=== PATIENT | female | born 1940 | race Caucasian/White ===

== ENCOUNTER 2016-12-15 23:05 | Inpatient (IN) ==
[2016-12-15 23:44] LABS: Basophils # 0.1 K/mcL (0.0-0.2); Basophils % 0.3 %; Hematocrit 43.3 % (35.3-44.9); Hemoglobin 13.9 g/dL (11.5-15.4); Immature Granulocytes % 0.3 % (0-4); Lymphocytes # 5.8 K/mcL (0.6-4.6); Lymphocytes % 38.3 %; Mean Corpuscular HGB Conc 32.1 g/dL (31.6-35.5); Mean Corpuscular Hemoglobin 28.5 pg (28.0-33.3); Mean Corpuscular Volume 88.9 fL (83.0-100.0); Monocytes # 1.1 K/mcL (0.0-1.3); Neutrophils # 8.2 K/mcL (1.6-8.9); Platelet Count 300 K/mcL (140-400); Red Blood Count 4.87 M/mcL (3.82-4.97); Red Cell Distribution Width 14.2 % (11.5-14.5); Segmented Neutrophils % 54.1 %
[2016-12-15 23:55] LABS: INR 1.3; Prothrombin Time 13.6 Seconds (9.4-12.1)
[2016-12-15 23:56] LABS: Calcium 9.8 mg/dL (8.6-10.8); Potassium 4.1 mEq/L (3.5-4.5)
[2016-12-15 23:57] LABS: Activated Partial Thrombo Time 32.2 Seconds (26.0-36.0)
--- NOTE | 2016-12-16 00:19 | Emergency Department Note ---
Disposition Clinical Impression: Symptomatic bradycardia Disposition: Admitted As Inpatient Condition: Fair Referrals: Trenton Aguero MD [Primary Care Provider] - Forms: ED Satisfaction Letter Time of Disposition: 01:40 Arrhythmia/Palpitations HPI - General Chief Complaint: ED Arrhythmia/Palpitations Stated Complaint: low heart rate Time Seen by Provider: 12/15/16 23:41 Source: patient Mode of arrival: ambulatory Limitations: no limitations Nursing Notes Reviewed: Yes Vital Signs Reviewed: Yes - History of Present Illness HPI Narrative: Nontoxic-appearing 76-year-old female presents for evaluation of a "low heart rate". The patient was admitted to this facility on 11/20/16 for atrial fibrillation with rapid ventricular rate. During her hospitalization, she was started on Toprol XL 50 mg, as well as Cardizem 360 mg. She states that ever since, she has had intermittent episodes of bradycardia into the high 30s and low 40s. She states that earlier today, she noticed that she was slightly lightheaded, short of breath with exertion, as well as began to have some substernal chest "pressure" however her lightheadedness had ceased by her [place] [facility] [place]. She has seen her pastry decorator, Remigio rivera Regarding this matter. She states that they are discussing the possibility of a pacemaker placement. Pt Subjective Complaint: irregular heart beat Onset (ago): day(s) Duration: intermittent Arrhythmia History: atrial fibrillation, on anti-coagulants Associated symptoms: Reports: chest pain (Substernal chest "pressure"), shortness of breath (Intermittent), diaphoresis (Intermittent) Treatments prior to arrival: beta-cori, calcium channel cori - Related Data Home Medications Medication Instructions Recorded Confirmed Aspirin [Lo-Dose Aspirin EC] 81 mg PO DAILY 11/20/16 11/20/16 Citalopram Hydrobromide 10 mg PO DAILY 11/20/16 11/20/16 [Citalopram HBr] Ergocalciferol (VITAMIN D2) 50,000 unit PO QWEEK 11/20/16 11/20/16 [Vitamin D2] Latanoprost [Xalatan] 1 drop OP QPM 11/20/16 11/20/16 Metformin HCl [Metformin HCl ER] 500 mg PO DAILY 11/20/16 11/20/16 Spironolactone [Aldactone] 25 mg PO DAILY 11/20/16 11/20/16 Previous Rx's Medication Instructions Recorded Rivaroxaban [Xarelto] 15 mg PO DAILY #30 tablet 11/21/16 Atorvastatin [Lipitor] 40 mg PO HS #30 tab 11/25/16 Diltiazem CD (24hr) [Cardizem CD] 360 mg PO DAILY 30 Days 11/25/16 DiphenhydraMINE [Benadryl] 25 mg PO Q8HR #14 capsule 11/25/16 Losartan/HCTZ [Hyzaar 50-12.5 1 each PO DAILY #30 tablet 11/25/16 Tablet] Metoprolol XL (24 HR) Succ [Toprol 50 mg PO BID 30 Days 11/25/16 Xl] Omeprazole [PriLOSEC] 40 mg PO DAILY@0630 #30 11/25/16 predniSONE [PredniSONE] 10 mg PO DAILY #10 tablet 11/25/16 Allergies Allergy/AdvReac Type Severity Reaction Status Date / Time bee venom protein (honey bee) Allergy Difficulty Verified 12/15/16 23:17 Breathing naproxen Allergy Hives Verified 12/15/16 23:17 Penicillins Allergy Hives Verified 12/15/16 23:17 All systems ED: reviewed and negative except as stated. Constitutional: Denies: fever, chills, weakness, weight change Eyes: Denies: eye pain, eye discharge, vision change ENT ED: Denies: ear pain, throat pain, dental pain, hearing loss, epistaxis, congestion, dysphagia Cardiovascular: Reports: as per HPI, chest pain, other (Low heart rate). Denies : palpitations, dyspnea on exertion, edema, syncope Respiratory: Denies: cough, dyspnea, wheezes, hemoptysis, stridor Gastrointestinal: Denies: abdominal pain, nausea, vomiting, diarrhea, constipation, hematemesis, melena, hematochezia Genitourinary: Denies: dysuria, frequency, hematuria, discharge Musculoskeletal: Denies: back pain, neck pain, arthralgia, myalgia Integumentary: Denies: rash, abrasion, lesions Neurological: Reports: as per HPI, other (Lightheadedness). Denies: headache, weakness, numbness, paresthesias, confusion, abnormal gait, vertigo Psychiatric: Denies: anxiety, depression, suicidal thoughts, homicidal thoughts , auditory hallucinations, visual hallucinations Endocrine: Denies: fatigue Hematological/Lymphatic: Denies: easy bleeding, easy bruising Allergic/Immunologic: Denies: facial swelling, urticaria Past Medical History - Past Medical History Attestation: Yes The following information was validated with the patient. Source: patient, nursing notes reviewed Medical history: Reports: atrial fibrillation, diabetes, GERD, glaucoma, hyperlipidemia, hypertension Surgical history: Reports: hysterectomy, knee replacement, orthopedic, other Psychiatric history: Reports: anxiety - Social History Smoking Status: Never smoker Smokeless Tobacco Status: No Alcohol use: Reports: none Drug use: Reports: none Physical Exam - General General appearance: alert, in no apparent distress - Head Head exam: atraumatic, normocephalic, normal inspection - Eye Eye exam: Present: normal appearance, PERRL, EOMI. Absent: nystagmus - ENT ENT exam: mucous membranes moist - Neck Neck exam: Present: normal inspection, full ROM, trachea midline - Chest Chest inspection: Present: normal inspection, symmetric chest wall rise - Respiratory Respiratory exam: Present: normal lung sounds bilaterally. Absent: respiratory distress, wheezes, stridor, accessory muscle use, prolonged expiratory phase - Cardiovascular Cardiovascular exam: Present: normal rhythm, bradycardia, normal heart sounds - Abdominal Exam Abdominal exam: Present: soft, Non-Tender, normal bowel sounds - Extremities Exam Extremities exam: Present: normal inspection, full ROM. Absent: tenderness, pedal edema - Neurological Exam Neurological exam: Present: alert, oriented X3 - Psychiatric Psychiatric exam: Present: normal affect, normal mood - Skin Skin exam: Present: warm, dry, intact, normal color Course Course Narrative: I discussed this patient's case with Dr. Castillo, who recommends admission to the hospital service for further evaluation of the patient's symptomatic bradycardia. 0135: I spoke with Dr. Gatica, of the hospitalist service who has accepted the patient for admission for further evaluation of her symptomatically bradycardia. Vital Signs Temperature 98.3 F 12/15/16 23:12 Pulse Rate 42 12/15/16 23:12 Respiratory Rate 16 12/15/16 23:12 Blood Pressure 156/78 12/15/16 23:12 O2 Sat by Pulse Oximetry 97 12/15/16 23:12 Temperature 98.3 F 12/15/16 23:12 Pulse Rate 57 12/16/16 01:19 Respiratory Rate 18 12/16/16 01:19 Blood Pressure 137/65 09/25/17 01:19 O2 Sat by Pulse Oximetry 96 12/16/16 01:19 Oxygen Delivery Oxygen Delivery Room Air Arrhythmia/Palpitations - Medical Records Medical records reviewed: Yes I reviewed the patient's medical records. - Lab Data Lab results reviewed: Yes I reviewed the patient's lab results. Lab results narrative: Laboratory Last Values WBC 15.1 K/mcL (4.3-11.1) H 12/15/16 23:33 RBC 4.87 M/mcL (3.82-4.97) 12/15/16 23:33 Hgb 13.9 g/dL (11.5-15.4) 12/15/16 23:33 Hct 43.3 % (35.3-44.9) 12/15/16 23: MCV 88.9 fL (83.0-100.0) 12/15/16 23:33 MCH 28.5 pg (28.0-33.3) 12/15/16 23: MCHC 32.1 g/dL (31.6-35.5) 12/15/16 23:33 RDW 14.2 % (11.5-14.5) 12/15/16 23:33 Plt Count 300 K/mcL (140-400) 12/15/16 23:33 MPV 12.0 fL (9.4-12.4) 12/15/16 23:33 Immature Gran % 0.3 % (0-4) 12/15/16 23:33 Seg Neutrophils % 54.1 % 12/15/16 23:33 Lymphocytes % 38.3 % 12/15/16 23:33 Monocytes % 7.0 % 12/15/16 23:33 Eosinophils % 0.0 % 12/15/16 23:33 Basophils % 0.3 % 12/15/16 23:33 Neutrophils # 8.2 K/mcL (1.6-8.9) 12/15/16 23:33 Lymphocytes # 5.8 K/mcL (0.6-4.6) H 12/15/16 23:33 Monocytes # 1.1 K/mcL (0.0-1.3) 12/15/16 23: Eosinophils # 0.0 K/mcL (0.0-0.6) 12/15/16 23:33 Basophils # 0.1 K/mcL (0.0-0.2) 12/15/16 23:33 PT 13.6 Seconds (9.4-12.1) H 12/15/16 23:33 INR 1.3 12/15/16 23:33 APTT 32.2 Seconds (26.0-36.0) 12/15/16 23:33 Sodium 141 mEq/L (136-145) 12/15/16 23:33 Potassium 4.1 mEq/L (3.5-4.5) 12/15/16 23:33 Chloride 106 mEq/L (98-109) 12/15/16 23:33 Carbon Dioxide 24 mEq/L (19-29) 12/15/16 23:33 BUN 28 mg/dL (7-20) H 12/15/16 23:33 Creatinine 1.20 mg/dL (0.57-1.11) H 12/15/16 23:33 Est GFR ( Amer) 53 (> 60) L 12/15/16 23:33 Est GFR (Non-Af Amer) 44 (> 60) L 12/15/16 23:33 BUN/Creatinine Ratio 23 (6-26) 12/15/16 23:33 Glucose 111 mg/dL (70-99) H 12/15/16 23:33 Calculated Osmolality 298 (280-300) 12/15/16 23:33 Calcium 9.8 mg/dL (8.6-10.8) 12/15/16 23:33 Troponin I 0.01 ng/mL (0-0.03) 12/15/16 23:33 Result diagrams: 12/15/16 23:33 12/15/16 23:33 Lab Results 12/15/16 12/15/16 12/15/16 Range/Units 23:33 23:33 23:33 WBC 15.1 H (4.3-11.1) K/mcL RBC 4.87 (3.82-4.97) M/mcL Hgb 13.9 (11.5-15.4) g/dL Hct 43.3 (35.3-44.9) % MCV 88.9 (83.0-100.0) fL MCH 28.5 (28.0-33.3) pg MCHC 32.1 (31.6-35.5) g/dL RDW 14.2 (11.5-14.5) % Plt Count 300 (140-400) K/mcL MPV 12.0 (9.4-12.4) fL Immature Gran % 0.3 (0-4) % Seg Neutrophils % 54.1 % Lymphocytes % 38.3 % Monocytes % 7.0 % Eosinophils % 0.0 % Basophils % 0.3 % Neutrophils # 8.2 (1.6-8.9) K/mcL Lymphocytes # 5.8 H (0.6-4.6) K/mcL Monocytes # 1.1 (0.0-1.3) K/mcL Eosinophils # 0.0 (0.0-0.6) K/mcL Basophils # 0.1 (0.0-0.2) K/mcL PT (9.4-12.1) Seconds INR APTT (26.0-36.0) Seconds Sodium 141 (136-145) mEq/L Potassium 4.1 (3.5-4.5) mEq/L Chloride 106 (98-109) mEq/L Carbon Dioxide 24 (19-29) mEq/L BUN 28 H (7-20) mg/dL Creatinine 1.20 H (0.57-1.11) mg/dL Est GFR ( Amer) 53 L (> 60) Est GFR (Non-Af Amer) 44 L (> 60) BUN/Creatinine Ratio 23 (6-26) Glucose 111 H (70-99) mg/dL Calculated Osmolality 298 (280-300) Calcium 9.8 (8.6-10.8) mg/dL Troponin I 0.01 (0-0.03) ng/mL Urine Color (Yellow) Urine Clarity (Clear) Urine pH (5.0-8.0) pH Units Ur Specific Accord (1.010-1.025) Urine Protein (Neg-Trace) mg/dL Urine Glucose (UA) (Normal) mg/dL Urine Ketones (Negative) mg/dL Urine Blood (Negative) Urine Nitrite (Negative) Urine Bilirubin (Negative) Urine Urobilinogen (Normal) mg/dL Ur Leukocyte Esterase (Negative) Urine Microscopic RBC (0-3) per hpf Urine Microscopic WBC (0-3) per hpf Ur Squamous Epith Cells (None-Few) per lpf Urine Bacteria (None-Few) per hpf Hyaline Casts (None-Few) per lpf Ur Culture Indicated? (NO) 12/15/16 12/16/16 Range/Units 23:33 01:08 WBC (4.3-11.1) K/mcL RBC (3.82-4.97) M/mcL Hgb (11.5-15.4) g/dL Hct (35.3-44.9) % MCV (83.0-100.0) fL MCH (28.0-33.3) pg MCHC (31.6-35.5) g/dL RDW (11.5-14.5) % Plt Count (140-400) K/mcL MPV (9.4-12.4) fL Immature Gran % (0-4) % Seg Neutrophils % % Lymphocytes % % Monocytes % % Eosinophils % % Basophils % % Neutrophils # (1.6-8.9) K/mcL Lymphocytes # (0.6-4.6) K/mcL Monocytes # (0.0-1.3) K/mcL Eosinophils # (0.0-0.6) K/mcL Basophils # (0.0-0.2) K/mcL PT 13.6 H (9.4-12.1) Seconds INR 1.3 APTT 32.2 (26.0-36.0) Seconds Sodium (136-145) mEq/L Potassium (3.5-4.5) mEq/L Chloride (98-109) mEq/L Carbon Dioxide (19-29) mEq/L BUN (7-20) mg/dL Creatinine (0.57-1.11) mg/dL Est GFR ( Amer) (> 60) Est GFR (Non-Af Amer) (> 60) BUN/Creatinine Ratio (6-26) Glucose (70-99) mg/dL Calculated Osmolality (280-300) Calcium (8.6-10.8) mg/dL Troponin I (0-0.03) ng/mL Urine Color Yellow (Yellow) Urine Clarity Clear (Clear) Urine pH 6.0 (5.0-8.0) pH Units Ur Specific Accord 1.015 (1.010-1.025) Urine Protein Negative (Neg-Trace) mg/dL Urine Glucose (UA) Normal (Normal) mg/dL Urine Ketones Negative (Negative) mg/dL Urine Blood Trace H (Negative) Urine Nitrite Negative (Negative) Urine Bilirubin Negative (Negative) Urine Urobilinogen Normal (Normal) mg/dL Ur Leukocyte Esterase Moderate H (Negative) Urine Microscopic RBC 0-3 (0-3) per hpf Urine Microscopic WBC 15-30 H (0-3) per hpf Ur Squamous Epith Cells Moderate H (None-Few) per lpf Urine Bacteria Moderate H (None-Few) per hpf Hyaline Casts None Seen (None-Few) per lpf Ur Culture Indicated? YES A (NO) - Radiology Data Radiology results reviewed: Yes I reviewed the patient's radiology results. Chest X-Ray 12/15/16 23:08 IMPRESSION: No focal airspace consolidation. D/ / Giselle Pelayo MD / Giselle Pelayo MD Interpreting Provider: Giselle Pelayo MD - EKG Data EKG attestation: Yes I reviewed and interpreted this EKG. EKG results narrative: EKG reviewed by Dr. Castillo as well. EKG shows a sinus bradycardia at a rate of 38 bpm. QRS duration 119, QT/QTc interval 479/399. No ectopy noted no STEMI. Moderate T-wave abnormality. Attestation Statement - Attestation Attestation: For this encounter, I have reviewed the TEXTILE SCREEN PRINTER or PA documentation, treatment plan, and medical decision making; and I have had face to face time with this patient. 76 year old female with symptomatic bradycardia we will treat with atropine and placed on pacer pads for precautions. ARF and order a UA for further evaluation. WE will admit to [facility]. after atropine therapy patinent HR is now 53.
[2016-12-16] MEDS ORDERED: *HR* Atropine Sulfate 1 MG/10 ML SYRINGE IVP STA ×2 (00:26→01:14)
[2016-12-16] MEDS ORDERED: Aspirin 81 MG TAB.CHEW PO ONE (00:45)
[2016-12-16 01:18] LABS: Bilirubin,Urine Negative (Negative); Blood,Urine Trace (Negative); Clarity,Urine Clear (Clear); Color,Urine Yellow (Yellow); Glucose,Urine (UA) Normal (Normal); Ketones,Urine Negative (Negative); Leukocyte Esterase,Urine Moderate (Negative); Nitrite,Urine Negative (Negative); Protein,Urine Negative (Neg-Trace); Specific Gravity,Urine 1.015 (1.010-1.025); Urobilinogen,Urine Normal (Normal)
[2016-12-16 01:20] LABS: Bacteria,Urine Moderate per hpf (None-Few); Hyaline Casts,Urine None Seen per lpf (None-Few); RBC,Urine 0-3 per hpf (0-3); Squamous Epithelial Cell,Urine Moderate per lpf (None-Few); WBC,Urine 15-30 per hpf (0-3)
[2016-12-16] MEDS ORDERED: 0.9 % Sodium Chloride 1,000 ML IVC ONE (01:26)
[2016-12-16] MEDS ORDERED: Ondansetron 4 MG/2 ML VIAL IVP PRN (02:55)
[2016-12-16] MEDS ORDERED: Naloxone 0.4 MG/ML INJ IVP PRN (02:55)
[2016-12-16] MEDS ORDERED: D5% in Water 1,000 ML IVC PRN (02:59)
[2016-12-16] MEDS ORDERED: *HR* Dextrose 50 % in Water (Syg) 50 ML SYRINGE IVP PRN (02:59)
[2016-12-16] MEDS ORDERED: Dextrose Gel 15 GM PO PRN ×2 (02:59)
--- NOTE | 2016-12-16 03:10 | Internal Med History&Physical ---
Date of Encounter: 12/16/16 Time of Encounter: 02:45 Assessment and Plan (1) Symptomatic bradycardia Current visit: Yes Status: Acute s/p receiving two dose of Atropine 0.5mg IV in the ER Currently asymptomatic HR in 40s-50s will hold BB and Cardizem at this time cardiology consultation requested will continue to closely monitor Atropine prn symptomatic bradycardia (2) Atrial fibrillation Current visit: No Status: Chronic Will hold BB and cardizem given bradycardia continue anticoagulation with Xarelto Qualifiers: Atrial fibrillation type: permanent Qualified Code(s): I48.2 - Chronic atrial fibrillation (3) LORETTA (acute kidney injury) Current visit: No Status: Acute Will hold home dose of Losartan/HCTZ, Spirinolactone at this time will closely monitor renal function avoid nephrotoxic agents at this time (4) Prediabetes Current visit: No Status: Resolved Patient has a reported history of prediabetes however Last HbA1C: 5.2 on 11/21/16 Pt reported of being on Metformin Will hold oral antihyperglycemic agents will monitor FS and BG ADA/Cardiac Diet (5) HTN (hypertension) Current visit: No Status: Chronic BP within acceptable range will closely monitor hydralazine 10mg IV q6h prn SBP>160 Qualifiers: Hypertension type: essential hypertension Qualified Code(s): I10 - Essential (primary) hypertension (6) DVT prophylaxis Current visit: No Status: Acute anticoagulated with Xarelto Internal Medicine - H&P: HPI Chief complaint: headache, weakness Admitted From: Home Plans for Post Hospital Care: Home History of present illness: Ms. Hammer is a 76 year old female with PMH of atrial fibrillation on xarelto , GERD, DM, HTN, HLD, and anxiety who presented to the hospital for evaluation of generalized weakness and headache. She states she normally has her HR in the 40s but today while she was feeling weak, she checked her HR and it was 37 which prompted her visit to the ER. Pt reported of feeling weak, lightheaded in the ER with HR of 36 due to which she received Atropine 0.5mg IV x 2 doses. Pt reports of improvement in her symptoms after receiving the atropine, even though her HR remained in the 40s. She reports of taking Metoprolol once a day along with Cardizem daily. During my evaluation, she is resting comfortably in bed and denies any discomfort. Denies any headache, lightheadedness, chest pain , sob, abd pain, n/v, dysuria, fever, or chills. Her UA showed trace leukocyte esterase however patient is clinically asymptomatic, therefore will monitor off abx. Social history: never smoker code status: Full code Past Med Surg Social Fam HX - Past Medical History Medical history: atrial fibrillation, diabetes, GERD, glaucoma, hyperlipidemia, hypertension Psychiatric history: anxiety - Past Surgical History Surgical History: hysterectomy, knee replacement, orthopedic, other - Social History Smoking Status: Never smoker Smokeless Tobacco Status: No Alcohol use: none Drug use: none Internal Medicine - H&P: Meds Aspirin [Lo-Dose Aspirin EC] 81 mg PO DAILY 11/20/16 [History] Citalopram Hydrobromide [Citalopram HBr] 10 mg PO DAILY 11/20/16 [History] Ergocalciferol (VITAMIN D2) [Vitamin D2] 50,000 unit PO QWEEK 11/20/16 [History] Latanoprost [Xalatan] 1 drop OP QPM 11/20/16 [History] Metformin HCl [Metformin HCl ER] 500 mg PO DAILY 11/20/16 [History] Spironolactone [Aldactone] 25 mg PO DAILY 11/20/16 [History] Rivaroxaban [Xarelto] 15 mg PO DAILY #30 tablet 11/21/16 [Rx] Atorvastatin [Lipitor] 40 mg PO HS #30 tab 11/25/16 [Rx] Diltiazem CD (24hr) [Cardizem CD] 360 mg PO DAILY 30 Days 11/25/16 [Rx] Losartan/HCTZ [Hyzaar 50-12.5 Tablet] 1 each PO DAILY #30 tablet 11/25/16 [Rx] Metoprolol XL (24 HR) Succ [Toprol Xl] 50 mg PO BID 30 Days 11/25/16 [Rx] Omeprazole [PriLOSEC] 40 mg PO DAILY@0630 #30 11/25/16 [Rx] 3 Allergy/AdvReac Type Severity Reaction Status Date / Time bee venom protein (honey bee) Allergy Difficulty Verified 12/15/16 23:17 Breathing naproxen Allergy Hives Verified 12/15/16 23:17 Penicillins Allergy Hives Verified 12/15/16 23:17 All Systems PM: A 10-system review of systems was performed and is negative for pertinent findings except as documented above in the HPI. - Constitutional Constitutional: as per HPI - Constitutional Vitals: Temp Pulse Resp BP Pulse Ox 97.4 F L 40 16 153/90 95 12/16/16 02:27 12/16/16 02:27 12/16/16 02:27 12/16/16 02:27 12/16/16 02:27 General appearance: Present: cooperative, A&O X 3, pleasant, no acute distress, obese, answers questions appropriately - Head Head exam: Present: atraumatic, normocephalic - Eye Eye exam: Present: conjuntiva pink, sclera anicteric - Respiratory Respiratory exam: Present: CTAB. Absent: accessory muscle use, rales, rhonchi, wheezes - Cardiovascular Cardiovascular exam: Present: bradycardia, irregular rhythm, +S1, +S2. Absent: diastolic murmur, systolic murmur - GI/Abdominal GI/Abdominal exam: Present: normal bowel sounds, soft, no peritoneal signs. Absent: distended, tenderness - Extremities Exam Extremities exam: Present: warm, radial pulses palpable and symmetrical. Absent : calf tenderness, cyanotic, pedal edema - Neurological Exam Neurological exam: Present: alert, oriented X3 - Psychiatric Psychiatric exam: Present: normal affect, normal mood Internal Med - H&P Results - Labs CBC & Chem 7: 12/15/16 23:33 12/15/16 23:33
[2016-12-16 04:44] LABS: Basophils % 0.2 %; Hemoglobin 12.6 g/dL (11.5-15.4); Immature Granulocytes % 0.4 % (0-4); Lymphocytes % 38.9 %; Mean Corpuscular HGB Conc 31.5 g/dL (31.6-35.5); Mean Corpuscular Hemoglobin 28.4 pg (28.0-33.3); Mean Corpuscular Volume 90.3 fL (83.0-100.0); Mean Platelet Volume 12.4 fL (9.4-12.4); Monocytes # 0.7 K/mcL (0.0-1.3); Monocytes % 6.7 %; Neutrophils # 5.6 K/mcL (1.6-8.9); Platelet Count 233 K/mcL (140-400); Red Blood Count 4.43 M/mcL (3.82-4.97); Red Cell Distribution Width 14.1 % (11.5-14.5); Segmented Neutrophils % 53.8 %
[2016-12-16] MEDS: Insulin LISPRO 300 UNITS/3 ML VIAL SQ SCH ×5 (04:52→22:54)
[2016-12-16 05:08] LABS: BUN/Creatinine Ratio 27 (6-26); Blood Urea Nitrogen 29 mg/dL (7-20); Calcium 9.1 mg/dL (8.6-10.8); Carbon Dioxide 24 mEq/L (19-29); Chloride 105 mEq/L (98-109); Glucose 115 mg/dL (70-99); Magnesium 1.7 mg/dL (1.6-2.6); Osmolality,Calculated 295 (280-300); Phosphorous 3.9 mg/dL (2.3-4.7); Potassium 3.8 mEq/L (3.5-4.5); Sodium 139 mEq/L (136-145); eGFR For African Americans > 60 (> 60); eGFR For Non-African Americans 50 (> 60)
[2016-12-16] MEDS: Aspirin Enteric Coated 81 MG Tablet PO SCH (08:26)
--- NOTE | 2016-12-16 08:34 | Cardiology Consult Note ---
Date of Encounter: 12/16/16 Time of Encounter: 08:30 Assessment and Plan (1) Symptomatic bradycardia Current Visit: Yes Status: Acute Per Cardiology: Previously been seen by Dr. Askew and reportedly had conversation about potential need for pacer in future. I saw patient in clinic last week with bradycardia in the 30's (ECG reviewed with Dr. Ashok Avalos and had evidence of junctional rhythm as well)-- refused admission and had pending EP consult as outpatient. Currently sinus bradycardia with heart rate in the 30s. Now off her Toprol XL 50 mg by mouth daily and Cardizem CD 360 mg by mouth daily. Electrolytes, magnesium, and TSH stable. We'll place an EP consult for evaluation of possible pacemaker. Patient agreeable to pacer if clinically warranted. Discussed and reviewed with Dr. Clement. (2) Atrial fibrillation with RVR Current Visit: No Status: Chronic Per Cardiology: History of paroxysmal A. fib. Recent hospitalization for A. fib with RVR. Currently off beta cori and calcium channel cori. Monitor telemetry closely for recurrence of A. fib off medications due to bradycardia. Regarding long-term anticoagulation, home medication of Xarelto 20mg PO daily-- recently resumed during hospital stay a few weeks ago (patient had discontinued) . Presented with very mild LORETTA, now resolved. On Xarelto 15mg PO daily-- will resume home dose. (3) LORETTA (acute kidney injury) Current Visit: No Status: Acute Per Cardiology: Had mild LORETTA last stay-- Lorsatan/HCTZ dose decreased. Presented again, now resolved. Will DC Losartan/HCTZ-- start Losartan 50mg PO daily. Monitor blood pressure closely. Discussion w patient/family: The assessment and plan as outlined above was discussed with the patient who expressed understanding and agreement. All questions were answered. Thank you for involving us in the care of your patient. Please call with any questions. History of Present Illness Consult date: 12/16/16 Consult reason: Bradycardia Chief complaint: Fatigue, Low HR History of present illness: Ms. Hammer is a 76 year old female with a relevant past medical history of paroxysmal atrial fibrillation, anticoagulated with Xarelto, hypertension, diabetes mellitus type 2, hyperlipidemia, and anxiety. Patient recently seen during hospitalization for A. fib with RVR with rate control strategy due to recently been off anticoagulation-- self discontinued. I persistent patient in the clinic last week for follow-up she presented with bradycardia with heart rate in the 30s and episodes of junctional rhythm, however patient is symptomatically and refused ER admission at that time. Cardiology consult for symptomatic bradycardia. Patient reports since last office visit heart rate has been running in the 40s with no significant changes in her normal state health until Friday evening. She reports concerns of headache. Additionally, reports some midsternal chest aching, currently resolved. She reports her main concern was generalized weakness and bilateral leg pain. She reports some dizziness upon walking in the ER. She denies any syncope or falls. Denies any active bleeding or blood loss. Denies any palpitations. Past Med Surg Social Fam HX - Past Medical History Attestation: Yes The following information was validated with the patient. Source: patient, old records reviewed Medical history: atrial fibrillation, diabetes, GERD, glaucoma, hyperlipidemia, hypertension Psychiatric history: anxiety - Past Surgical History Surgical History: hysterectomy, knee replacement, orthopedic, other - Social History Smoking Status: Never smoker Smokeless Tobacco Status: No Alcohol use: none Drug use: none Medications and Allergies Aspirin [Lo-Dose Aspirin EC] 81 mg PO DAILY 11/20/16 [History] Citalopram Hydrobromide [Citalopram HBr] 10 mg PO DAILY 11/20/16 [History] Ergocalciferol (VITAMIN D2) [Vitamin D2] 50,000 unit PO QWEEK 11/20/16 [History] Latanoprost [Xalatan] 1 drop OP QPM 11/20/16 [History] Metformin HCl [Metformin HCl ER] 500 mg PO DAILY 11/20/16 [History] Spironolactone [Aldactone] 25 mg PO DAILY 11/20/16 [History] Rivaroxaban [Xarelto] 15 mg PO DAILY #30 tablet 11/21/16 [Rx] Atorvastatin [Lipitor] 40 mg PO HS #30 tab 11/25/16 [Rx] Diltiazem CD (24hr) [Cardizem CD] 360 mg PO DAILY 30 Days 11/25/16 [Rx] Losartan/HCTZ [Hyzaar 50-12.5 Tablet] 1 each PO DAILY #30 tablet 11/25/16 [Rx] Metoprolol XL (24 HR) Succ [Toprol Xl] 50 mg PO BID 30 Days 11/25/16 [Rx] Omeprazole [PriLOSEC] 40 mg PO DAILY@0630 #30 11/25/16 [Rx] DiphenhydraMINE [Benadryl] 25 mg PO Q8H 12/16/16 [History] predniSONE [PredniSONE] 10 - 20 mg PO DAILY PRN 12/16/16 [History] 3 Allergy/AdvReac Type Severity Reaction Status Date / Time bee venom protein (honey bee) Allergy Difficulty Verified 12/16/16 10:34 Breathing naproxen Allergy Hives Verified 12/16/16 10:34 Penicillins Allergy Hives Verified 12/16/16 10:34 All Systems Review: A 10-system review of systems was performed and is negative for pertinent findings except as documented above in the HPI. - Constitutional Constitutional: headache(s), weakness - Cardiovascular Cardiovascular: as per HPI, chest pain at rest, slow heart rate Physical Examination Vital Signs, Last 4 Hours Temp Pulse Resp BP Pulse Ox 12/16/16 07:23 97.4 F L 38 14 148/55 95 General: Conversant, No Apparent Distress HEENT: Atraumatic, Normocephaly, Mucus Membranes Moist Neck: No JVD, Normal carotid pulses Cardiac: Reg Rate and Rhythm, Normal S1 and S2, No Murmur, Other (Bradycardic) Lungs: Normal Breath Sounds, No Wheeze, Rales, Rhonchi Neuro: Alert and responsive, No focal deficits noted Abdomen: Soft, Non-Tender Skin: No rashes noted on visualized skin Musculoskeletal: No Chest Wall Tenderness Extremities: No Clubbing, No Cyanosis, No Edema, Normal Pulses Results 12/16/16 03:45 12/16/16 03:45 Lab Results Laboratory Tests 11/20/16 11/21/16 12/15/16 12:18 00:51 23:33 INR Creatinine 1.06 1.20 H Est GFR (Non-Af Amer) 51 L 44 L Magnesium Troponin I TSH 2.626 Urine Blood Ur Leukocyte Esterase Ur Squamous Epith Cells Urine Bacteria Ur Culture Indicated? 12/15/16 12/15/16 12/16/16 23:33 23:33 01:08 INR 1.3 Creatinine Est GFR (Non-Af Amer) Magnesium Troponin I 0.01 TSH Urine Blood Trace H Ur Leukocyte Esterase Moderate H Ur Squamous Epith Cells Moderate H Urine Bacteria Moderate H Ur Culture Indicated? YES A 12/16/16 03:45 INR Creatinine 1.08 Est GFR (Non-Af Amer) 50 L Magnesium 1.7 Troponin I TSH Urine Blood Ur Leukocyte Esterase Ur Squamous Epith Cells Urine Bacteria Ur Culture Indicated? ITS Impressions Chest X-Ray 12/15/16 23:08 IMPRESSION: No focal airspace consolidation. D/ / Giselle Pelayo MD / Giselle Pelayo MD Interpreting Provider: Giselle Pelayo MD Active Medications Aspirin (Aspirin Ec) 81 mg PO DAILY [facility] Stop: 06/17/17 09:01 Last Admin: 12/16/16 08:26 Dose: 81 mg Atorvastatin Calcium (Lipitor) 40 mg PO HS [facility] Stop: 06/17/17 21:01 Citalopram Hydrobromide (Celexa) 10 mg PO DAILY [facility] Stop: 06/17/17 09:01 Last Admin: 12/16/16 08:25 Dose: 10 mg Dextrose/Water (Dextrose 50% (Syg)) 25 ml IVP AD PRN PRN Reason: Hypoglycemia Stop: 06/17/17 03:00 Ergocalciferol (Drisdol (50,000 Unit)) 50,000 unit PO QWEEK [facility] Stop: 06/17/17 09:01 Last Admin: 12/16/16 08:25 Dose: Not Given Glucagon (Glucagen) 1 mg IM ONCE PRN PRN Reason: Hypoglycemia Stop: 06/17/17 03:00 Glucose (Gluctose) 15 gm PO ONCE PRN PRN Reason: Hypoglycemia Stop: 06/17/17 03:00 Glucose (Gluctose) 30 gm PO ONCE PRN PRN Reason: Hypoglycemia Stop: 06/17/17 03:00 Hydralazine HCl (Hydralazine) 10 mg IVP Q6HR PRN PRN Reason: SBP>160 Stop: 06/17/17 03:16 Dextrose (Dextrose 5%) 1,000 mls @ 100 mls/hr IVC .Q10H PRN PRN Reason: HYPOGLYCEMIA Stop: 06/17/17 03:00 Insulin Human Lispro (Humalog) 0 units SQ TIDAC [facility] PRN Reason: Protocol Stop: 03/27/18 07:31 Last Admin: 12/16/16 08:18 Dose: Not Given Insulin Human Lispro (Humalog) 0 units SQ HS [facility] PRN Reason: Protocol Stop: 06/17/17 03:01 Last Admin: 12/16/16 04:52 Dose: Not Given Naloxone HCl (Narcan) 0.4 mg IVP Q2MIN PRN PRN Reason: Opioid Reversal Stop: 06/17/17 02:56 Omeprazole (Prilosec) 40 mg PO DAILY@0630 [facility] PRN Reason: Protocol Stop: 06/17/17 06:31 Last Admin: 12/16/16 08:26 Dose: 40 mg Ondansetron HCl (Zofran) 4 mg IVP Q8HR PRN PRN Reason: Nausea And Vomiting Stop: 06/17/17 02:56 Rivaroxaban (Xarelto) 15 mg PO DAILY [facility] Stop: 06/17/17 09:01 Last Admin: 12/16/16 08:25 Dose: 15 mg - Imaging and Cardiology Chest Xray: report reviewed Echo: report reviewed - EKG Interpretation EKG results cardiology: personally reviewed (SB in the 30's), other (Telemetry reviewed with average heart rate 12:39 hours, sinus bradycardia) Consult Discharge Plan - Plan Referrals: Trenton Aguero MD [Primary Care Provider] -
[2016-12-16] MEDS ORDERED: Losartan/HCTZ 50-12.5 TABLET PO SCH (09:00)
[2016-12-16] MEDS ORDERED: *HR* Rivaroxaban 15 MG TABLET PO SCH (09:00)
--- NOTE | 2016-12-16 09:54 | Event Note ---
<Loida Connelly - Last Filed: 12/16/16 09:52> Date of Encounter: 12/16/16 Time of Encounter: 07:55 The patient is sitting up in bed. She stated that she feels better today than she did yesterday. She has no complaints at this time. <Mahendra Dominguez - Last Filed: 12/16/16 18:32> Date of Encounter: 12/16/16 I examined this patient and my medical decision-making was reviewed with the Resident Physician, Dr Connelly. I agree with the documented findings, disposition and treatment plan as described except to the extent set forth below. My findings are summarized below: There is an area of erythema and induration measuring 4 cm in diameter on the anterior neck. There is no discharge. Heart exam reveals regular S1-S2. Lungs are clear. Plan continue with broad-spectrum IV antibiotics. Follow-up culture and sensitivity of the fluid drained in the emergency department. We will continue with MRSA coverage for now.
[2016-12-16] MEDS: Spironolactone 25 MG TABLET PO SCH (10:04)
--- NOTE | 2016-12-16 13:29 | Electrophysiology Consult Note ---
Date of Encounter: 12/16/16 Time of Encounter: 13:15 Assessment and Plan (1) Symptomatic bradycardia Current Visit: Yes Status: Acute Per EP: -Admitted with bradycardia, HR 30s. States was feeling dizzy, headaches, short of breath, and had some chest heaviness. -Beta cori and cardizem have bee held. -Average HR 40, sinus bradycardia. Denies current symptoms, states has been up walking to the bathroom without symptoms. -Continue to hold beta cori and cardizem. -Continue monitoring manager. -Will continue to monitor. (2) Atrial fibrillation Current Visit: No Status: Chronic Per EP: -Known atrial fibrillation, recent admission with a.fib RVR. -Was on beta cori and cardizem as outpateint, now stopped. -On xarelto for anticoagulation, has missed doses in the past 30 days. -Will hold beta cori and cardizem. -Will continue to monitor. Qualifiers: Atrial fibrillation type: paroxysmal Qualified Code(s): I48.0 - Paroxysmal atrial fibrillation (3) LORETTA (acute kidney injury) Current Visit: No Status: Acute Per EP: -Mild LORETTA on admission with creatinine 1.2, today 1.08. -Management per primary service. Discussion w patient/family: The assessment and plan as outlined above was discussed with the patient and/or family members who expressed understanding and agreement. All questions were answered. Thank you for involving us in the care of your patient. Please call with any questions. Discussed and reviewed with Dr.John Avalos. 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 Hammer is a 76 year old female with a relevant past medical history of paroxysmal atrial fibrillation, anticoagulated with Xarelto, hypertension, diabetes mellitus type 2, hyperlipidemia, and anxiety. Patient was recently admitted with a.fib RVR and was started on metoprolol and cardizem. Patient was seen and evaluated in outpatient cardiology office as hospital follow up and was noted to be bradycardic. Patient at that time was asymptomatic and refused ER evaluation. Patient states Friday evening, she developed shortness of breath with exertion, headache, chest heaviness, and some dizziness. Patient presented to [facility]. EP has been consulted for symptomatic bradycardia. Patient denies current dizziness, headache, chest heaviness, or shortness of breath. Patient states she has been up walking to the bathroom and denied symptoms with exertion. Past Med Surg Social Fam HX - Past Medical History Attestation: Yes The following information was validated with the patient. Source: patient, old records reviewed Medical history: atrial fibrillation, diabetes, GERD, glaucoma, hyperlipidemia, hypertension Psychiatric history: anxiety - Past Surgical History Surgical History: hysterectomy, knee replacement, orthopedic, other - Social History Smoking Status: Never smoker Smokeless Tobacco Status: No Alcohol use: none Drug use: none Medications and Allergies Aspirin [Lo-Dose Aspirin EC] 81 mg PO DAILY 11/20/16 [History] Citalopram Hydrobromide [Citalopram HBr] 10 mg PO DAILY 11/20/16 [History] Ergocalciferol (VITAMIN D2) [Vitamin D2] 50,000 unit PO TOBIN 11/20/16 [History] Latanoprost [Xalatan] 1 drop OP QPM 11/20/16 [History] Metformin HCl [Metformin HCl ER] 500 mg PO DAILY 11/20/16 [History] Spironolactone [Aldactone] 25 mg PO DAILY 11/20/16 [History] Rivaroxaban [Xarelto] 15 mg PO DAILY #30 tablet 11/21/16 [Rx] Atorvastatin [Lipitor] 40 mg PO HS #30 tab 11/25/16 [Rx] Diltiazem CD (24hr) [Cardizem CD] 360 mg PO DAILY 30 Days 11/25/16 [Rx] Losartan/HCTZ [Hyzaar 50-12.5 Tablet] 1 each PO DAILY #30 tablet 11/25/16 [Rx] Metoprolol XL (24 HR) Succ [Toprol Xl] 50 mg PO BID 30 Days 11/25/16 [Rx] Omeprazole [PriLOSEC] 40 mg PO DAILY@0630 #30 11/25/16 [Rx] DiphenhydraMINE [Benadryl] 25 mg PO Q8H 12/16/16 [History] predniSONE [PredniSONE] 10 - 20 mg PO DAILY PRN 12/16/16 [History] 3 Allergy/AdvReac Type Severity Reaction Status Date / Time bee venom protein (honey bee) Allergy Difficulty Verified 12/16/16 10:34 Breathing naproxen Allergy Hives Verified 12/16/16 10:34 Penicillins Allergy Hives Verified 12/16/16 10:34 All Systems Review: A 10-system review of systems was performed and is negative for pertinent findings except as documented above in the HPI. - Constitutional Constitutional: headache(s) - Cardiovascular Cardiovascular: as per HPI, dyspnea on exertion - Neurological Neurological: dizziness Physical Examination Vital Signs, Last 4 Hours Temp Pulse Resp BP Pulse Ox 12/16/16 12:35 36 12/16/16 11:52 97.7 F 38 14 130/72 96 General: Conversant, No Apparent Distress HEENT: Atraumatic, Normocephaly, Mucus Membranes Moist Neck: No JVD, Normal carotid pulses Cardiac: Normal S1 and S2, No Murmur, Other (Bradycardic. ) Lungs: Normal Breath Sounds, No Wheeze, Rales, Rhonchi Neuro: Alert and responsive, No focal deficits noted Abdomen: Soft, Non-Tender Skin: No rashes noted on visualized skin Musculoskeletal: No Chest Wall Tenderness Extremities: No Clubbing, No Cyanosis, No Edema, Normal Pulses Results 12/16/16 03:45 12/16/16 03:45 Lab Results Impressions Chest X-Ray 12/15/16 23:08 IMPRESSION: No focal airspace consolidation. D/ / Giselle Pelayo MD / Giselle Pelayo MD Interpreting Provider: Giselle Pelayo MD Active Medications Aspirin (Aspirin Ec) 81 mg PO DAILY [facility] Stop: 06/17/17 09:01 Last Admin: 12/16/16 08:26 Dose: 81 mg Atorvastatin Calcium (Lipitor) 40 mg PO HS [facility] Stop: 06/17/17 21:01 Citalopram Hydrobromide (Celexa) 10 mg PO DAILY [facility] Stop: 06/17/17 09:01 Last Admin: 12/16/16 08:25 Dose: 10 mg Dextrose/Water (Dextrose 50% (Syg)) 25 ml IVP AD PRN PRN Reason: Hypoglycemia Stop: 06/17/17 03:00 Ergocalciferol (Drisdol (50,000 Unit)) 50,000 unit PO QWEEK [facility] Stop: 06/17/17 09:01 Last Admin: 12/16/16 08:25 Dose: Not Given Glucagon (Glucagen) 1 mg IM ONCE PRN PRN Reason: Hypoglycemia Stop: 06/17/17 03:00 Glucose (Gluctose) 15 gm PO ONCE PRN PRN Reason: Hypoglycemia Stop: 06/17/17 03:00 Glucose (Gluctose) 30 gm PO ONCE PRN PRN Reason: Hypoglycemia Stop: 06/17/17 03:00 Hydralazine HCl (Hydralazine) 10 mg IVP Q6HR PRN PRN Reason: SBP>160 Stop: 06/17/17 03:16 Dextrose (Dextrose 5%) 1,000 mls @ 100 mls/hr IVC .Q10H PRN PRN Reason: HYPOGLYCEMIA Stop: 06/17/17 03:00 Insulin Human Lispro (Humalog) 0 units SQ TIDAC [facility] PRN Reason: Protocol Stop: 06/17/17 07:31 Last Admin: 12/16/16 12:33 Dose: Not Given Insulin Human Lispro (Humalog) 0 units SQ HS [facility] PRN Reason: Protocol Stop: 06/17/17 03:01 Last Admin: 12/16/16 04:52 Dose: Not Given Losartan Potassium (Cozaar) 50 mg PO DAILY [facility] PRN Reason: Protocol Stop: 06/18/17 09:01 Naloxone HCl (Narcan) 0.4 mg IVP Q2MIN PRN PRN Reason: Opioid Reversal Stop: 06/17/17 02:56 Omeprazole (Prilosec) 40 mg PO DAILY@0630 [facility] PRN Reason: Protocol Stop: 06/17/17 06:31 Last Admin: 12/16/16 08:26 Dose: 40 mg Ondansetron HCl (Zofran) 4 mg IVP Q8HR PRN PRN Reason: Nausea And Vomiting Stop: 06/17/17 02:56 Rivaroxaban (Xarelto) 15 mg PO DAILY [facility] Stop: 06/18/17 09:01 Spironolactone (Aldactone) 25 mg PO DAILY [facility] Stop: 06/17/17 09:01 Last Admin: 12/16/16 10:04 Dose: 25 mg Laboratory Tests 12/15/16 12/15/16 12/16/16 23:33 23:33 03:45 Hgb 12.6 Potassium Creatinine 1.20 H Magnesium Troponin I 0.01 12/16/16 03:45 Hgb Potassium 3.8 Creatinine 1.08 Magnesium 1.7 Troponin I - Imaging and Cardiology Chest Xray: report reviewed Echo: report reviewed - EKG Interpretation EKG results cardiology: personally reviewed (ECG with sinus bradycardia, HR 38.) , other (Telemetry reviewed with average HR previous 12 hours noted to be 40, sinus bradycardia.) Consult Discharge Plan - Plan Referrals: Trenton Aguero MD [Primary Care Provider] - 12/24/16 3:00 pm (please follow up with your primary care provider)
--- NOTE | 2016-12-16 15:01 | Electrocardiograph Report ---
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
[2016-12-17 06:13] LABS: Basophils % 0.5 %; Hematocrit 40.8 % (35.3-44.9); Hemoglobin 12.7 g/dL (11.5-15.4); Immature Granulocytes % 0.2 % (0-4); Lymphocytes % 35.5 %; Mean Corpuscular HGB Conc 31.1 g/dL (31.6-35.5); Mean Corpuscular Hemoglobin 27.9 pg (28.0-33.3); Mean Corpuscular Volume 89.5 fL (83.0-100.0); Monocytes # 0.8 K/mcL (0.0-1.3); Monocytes % 8.9 %; Neutrophils # 4.6 K/mcL (1.6-8.9); Platelet Count 236 K/mcL (140-400); Red Blood Count 4.56 M/mcL (3.82-4.97); Red Cell Distribution Width 14.2 % (11.5-14.5); Segmented Neutrophils % 54.9 %
[2016-12-17 06:25] LABS: Calcium 9.3 mg/dL (8.6-10.8); Magnesium 1.7 mg/dL (1.6-2.6); Potassium 4.3 mEq/L (3.5-4.5)
[2016-12-17] MEDS: Insulin LISPRO 300 UNITS/3 ML VIAL SQ SCH ×4 (07:57→21:00)
[2016-12-17] MEDS: Spironolactone 25 MG TABLET PO SCH (08:15)
[2016-12-17] MEDS: Aspirin Enteric Coated 81 MG Tablet PO SCH (08:16)
--- NOTE | 2016-12-17 08:39 | Internal Med Progress Note ---
<Loida Connelly - Last Filed: 12/17/16 16:15> Date of Encounter: 12/17/16 Time of Encounter: 08:39 - Assessment and plan (1) Symptomatic bradycardia Current Visit: Yes Status: Acute Assessment and plan: Patient arrived to hospital with symptomatic bradycardia in the 30s with YANG, weakness, shortness of breath. HR currently 47, patient reports feeling improved compared to admission -Electrophysiology was performed and it was determined by cardiology that the patient would need a pace maker -Cardiology on board -patient is scheduled for pacemaker placement this afternoon -holding beta cori, calcium channel cori, and xarelto until after procedure -continue general matcher (2) Atrial fibrillation Current Visit: No Status: Chronic Assessment and plan: Patient has known atrial fibrillation -holding patient's Toprol and Cardizem -holdings xarelto until after pacemaker placement Qualifiers: Atrial fibrillation type: paroxysmal Qualified Code(s): I48.0 - Paroxysmal atrial fibrillation (3) LORETTA (acute kidney injury) Current Visit: No Status: Acute Assessment and plan: Increase in creatinine to 1.17 from 1.08 yesterday -will hold spironolactone and losartan -Will closely monitor renal function -avoid nephrotoxic agents (4) HTN (hypertension) Current Visit: No Status: Chronic Assessment and plan: Controlled and within normal limits -Continue losartan, ASA, hydralazine PRN -hold spironolactone Qualifiers: Hypertension type: essential hypertension Qualified Code(s): I10 - Essential (primary) hypertension (5) DVT prophylaxis Current Visit: No Status: Acute Assessment and plan: Holding xarelto due to pacemaker placement - Subjective Interval history: The patient was laying in bed comfortably. Her only complaint is that she had a headache last night that has since resolved. She denied any chest pain, dizziness, syncope, shortness of breathe. - Constitutional Vitals: Temp Pulse Resp BP Pulse Ox 97.5 F L 45 16 138/57 97 12/17/16 07:40 12/17/16 07:40 12/17/16 07:49 12/17/16 07:40 12/17/16 07:40 General appearance: Present: cooperative, A&O X 3, pleasant, no acute distress, obese, answers questions appropriately Exam: Gen.: Vitals noted. No acute distress. AAOx3 HEENT: oropharynx clear, Normocephalic, atraumatic Neck: Supple. No adenopathy. Cardiac: bradycardia, irregular rhythm, no murmur, +S1/S2 Pulmonary: CTA bilaterally, no wheezes, rales or rhonchi, equal chest expansion Abdomen: soft, nontender, Bowel sounds noted, no guarding MSK: ROM intact, no joint swelling noted Extremities: no BLE edema, nontender calf, no cyanosis or clubbing Neuro: A&Ox3, moves all extremities Psych: Appropriate mood and behavior Internal Medicine: Result - Labs CBC & Chem 7: 12/17/16 05:52 12/17/16 05:52 Labs: Short CBC 12/17/16 Range/Units 05:52 WBC 8.4 (4.3-11.1) K/mcL Hgb 12.7 (11.5-15.4) g/dL Hct 40.8 (35.3-44.9) % Plt Count 236 (140-400) K/mcL Neutrophils # 4.6 (1.6-8.9) K/mcL BMP 12/17/16 05:52 Sodium 142 Potassium 4.3 Chloride 106 Carbon Dioxide 26 BUN 26 H Creatinine 1.17 H Glucose 105 H Calcium 9.3 - ABG Interpretation ABG results: PT/INR, D-dimer PT 13.6 Seconds (9.4-12.1) H 12/15/16 23:33 - VTE Documentation of Mechanical Device: Intermittent pneumatic compression device Consult Discharge Plan - Plan Referrals: Trenton Aguero MD [Primary Care Provider] - 12/24/16 3:00 pm (please follow up with your primary care provider) <Mahendra Dominguez - Last Filed: 12/18/16 07:29> Date of Encounter: 12/17/16 - Constitutional Vitals: Temp Pulse Resp BP Pulse Ox 97.9 F 60 19 140/55 95 12/18/16 03:41 12/18/16 03:41 12/18/16 03:41 12/18/16 03:41 12/18/16 03:41 Internal Medicine: Result - Labs CBC & Chem 7: 12/18/16 03:14 12/18/16 03:14 Labs: Short CBC 12/18/16 Range/Units 03:14 WBC 7.7 (4.3-11.1) K/mcL Hgb 12.3 (11.5-15.4) g/dL Hct 39.5 (35.3-44.9) % Plt Count 226 (140-400) K/mcL Neutrophils # 4.7 (1.6-8.9) K/mcL BMP 12/18/16 03:14 Sodium 141 Potassium 4.4 Chloride 108 Carbon Dioxide 24 BUN 26 H Creatinine 1.02 Glucose 95 Calcium 8.7 - ABG Interpretation ABG results: PT/INR, D-dimer PT 13.6 Seconds (9.4-12.1) H 12/15/16 23:33 - Impressions Impressions Chest X-Ray 12/17/16 16:13 IMPRESSION: 1. Interval left-sided dual lead pacemaker placement with mild perihilar interstitial edema. 2. No acute pneumothorax. D/ / 12/17/2016 16:55:45 Hussain Terry MD / Christiana Adame Interpreting Provider: Hussain Terry MD - Attending Attestation I examined this patient and my medical decision-making was reviewed with the Resident Physician, Dr. Connelly. I agree with the documented findings, disposition and treatment plan as described except to the extent set forth below. I have independently obtained history and examined the patient and my findings are summarized below: Patient remains bradycardic. She is asymptomatic. Heart is irregularly irregular and bradycardic. Lungs are clear. Plan: Pacemaker placement today per cardiology.
[2016-12-17] MEDS ORDERED: *HR* Rivaroxaban 15 MG TABLET PO SCH (09:00)
[2016-12-17] MEDS ORDERED: Clindamycin 900 MG/50 ML 900 MG/50 ML IV.SOLN IVPB ONE (10:41)
--- NOTE | 2016-12-17 10:51 | Event Note ---
Date of Encounter: 12/17/16 Time of Encounter: 10:45 - Cardiology Event Note Telemetry reviewed with average heart rate the past 12 hours 40, sinus bradycardia. No afib noted. Currently sinus michael in the 40s. Remains asymptomatic. Per discussion with Dr. Ashok Avalos, plan for permanent pacemaker this afternoon. All questions answered. Anticipate resumption of beta cori, calcium channel cori, and Xarelto after procedure.
[2016-12-17] MEDS: Latanoprost 2.5 ML BOTTLE BOTH EYES SCH ×2 (11:32→21:19)
--- NOTE | 2016-12-17 14:31 | Pre-Sedation Evaluation ---
Pre-sedation evaluation - Pre-sedation checklist Date of procedure: 12/17/16 Procedure: pacemaker Recent Vitals: Last Vital Signs Temp 97.5 F L 12/17/16 11:30 Pulse 47 12/17/16 11:30 Resp 14 12/17/16 11:30 BP 140/62 12/17/16 11:30 Pulse Ox 97 12/17/16 11:30 H&P (including ROS) documented in medical record: Yes Previous reaction to sedatives/anesthetics: No Dietary Status: NPO after Midnight Airway Assessment: Patient can open mouth completely, TMJ function normal, Micrognathia (under-bite, receding chin) absent Dentition: No loose teeth or bridges Possible difficult airway: No ASA Classification *see protocol: CLASS II-Mild systemic disease Plan of Care: Pt appropriate candidate for procedure/moderate/conscious sedation , Risks/benefits of procedure/sedation discussed w/ patient/family
[2016-12-17] MEDS ORDERED: Clindamycin 600 MG/50 ML 1,200 MG/100 ML IV.SOLN IVPB ONE (15:05)
[2016-12-17] MEDS ORDERED: 0.9 % Sodium Chloride 1,000 ML ONE (15:05)
[2016-12-17] MEDS ORDERED: 0.9 % Sodium Chloride 500 ML ONE (15:05)
[2016-12-17] MEDS ORDERED: *HR* Midazolam HCl 2 MG/2 ML VIAL ONE (15:19)
[2016-12-17] MEDS ORDERED: *HR* FentaNYL (PF) 100 MCG/2 ML VIAL ONE (15:19)
[2016-12-17] MEDS ORDERED: Acetaminophen 325 MG TABLET PO PRN (16:13)
[2016-12-17] MEDS ORDERED: *HR* Morphine 2 MG/ML SYRINGE IVP PRN (16:13)
[2016-12-17] MEDS ORDERED: Clindamycin 900 MG/50 ML 900 MG/50 ML IV.SOLN IVPB SCH (18:00)
[2016-12-17] MEDS: Metoprolol XL (24 HR) Succ 50 MG TAB.ER.24H PO SCH (21:18)
[2016-12-18 03:38] LABS: Basophils % 0.3 %; Hematocrit 39.5 % (35.3-44.9); Hemoglobin 12.3 g/dL (11.5-15.4); Immature Granulocytes % 0.3 % (0-4); Lymphocytes # 2.2 K/mcL (0.6-4.6); Mean Corpuscular HGB Conc 31.1 g/dL (31.6-35.5); Mean Corpuscular Hemoglobin 28.1 pg (28.0-33.3); Mean Corpuscular Volume 90.4 fL (83.0-100.0); Monocytes # 0.8 K/mcL (0.0-1.3); Monocytes % 9.8 %; Neutrophils # 4.7 K/mcL (1.6-8.9); Platelet Count 226 K/mcL (140-400); Red Blood Count 4.37 M/mcL (3.82-4.97); Red Cell Distribution Width 13.9 % (11.5-14.5); Segmented Neutrophils % 60.6 %
[2016-12-18 04:02] LABS: BUN/Creatinine Ratio 25 (6-26); Blood Urea Nitrogen 26 mg/dL (7-20); Calcium 8.7 mg/dL (8.6-10.8); Carbon Dioxide 24 mEq/L (19-29); Chloride 108 mEq/L (98-109); Glucose 95 mg/dL (70-99); Osmolality,Calculated 297 (280-300); Potassium 4.4 mEq/L (3.5-4.5); Sodium 141 mEq/L (136-145); eGFR For African Americans > 60 (> 60); eGFR For Non-African Americans 53 (> 60)
--- NOTE | 2016-12-18 07:54 | Event Note ---
Date of Encounter: 12/18/16 Time of Encounter: 07:50 - Cardiology Event Note Per discussion with Dr. Ashok Avalos, will hold Xarelto for 1 week post pacer insertion.
[2016-12-18] MEDS: Insulin LISPRO 300 UNITS/3 ML VIAL SQ SCH ×2 (08:21→13:10)
[2016-12-18] MEDS ORDERED: Diltiazem CD (24hr) 180 MG CAPSULE PO SCH (09:00)
[2016-12-18] MEDS: Metoprolol XL (24 HR) Succ 50 MG TAB.ER.24H PO SCH (09:27)
[2016-12-18] MEDS: Aspirin Enteric Coated 81 MG Tablet PO SCH (09:27)
--- NOTE | 2016-12-18 09:28 | Discharge Summary ---
<Loida Connelly - Last Filed: 12/18/16 13:36> Date of Encounter: 12/18/16 Time of Encounter: 09:27 - Discharge Diagnosis (1) Symptomatic bradycardia Priority: Primary Status: Acute (2) Atrial fibrillation Priority: Secondary Status: Chronic Qualifiers: Atrial fibrillation type: paroxysmal Qualified Code(s): I48.0 - Paroxysmal atrial fibrillation (3) LORETTA (acute kidney injury) Priority: Secondary Status: Acute (4) HTN (hypertension) Priority: Secondary Status: Chronic Qualifiers: Hypertension type: essential hypertension Qualified Code(s): I10 - Essential (primary) hypertension (5) DVT prophylaxis Priority: Secondary Status: Acute - Discharge Medications Home Medications: Aspirin [Lo-Dose Aspirin EC] 81 mg PO DAILY 11/20/16 [History] Citalopram Hydrobromide [Citalopram HBr] 10 mg PO DAILY 11/20/16 [History] Ergocalciferol (VITAMIN D2) [Vitamin D2] 50,000 unit PO TOBIN 11/20/16 [History] Latanoprost [Xalatan] 1 drop OP QPM 11/20/16 [History] Metformin HCl [Metformin HCl ER] 500 mg PO DAILY 11/20/16 [History] Spironolactone [Aldactone] 25 mg PO DAILY 11/20/16 [History] Atorvastatin [Lipitor] 40 mg PO HS #30 tab 11/25/16 [Rx] Diltiazem CD (24hr) [Cardizem CD] 360 mg PO DAILY 30 Days 11/25/16 [Rx] Losartan/HCTZ [Hyzaar 50-12.5 Tablet] 1 each PO DAILY #30 tablet 11/25/16 [Rx] Metoprolol XL (24 HR) Succ [Toprol Xl] 50 mg PO BID 30 Days 11/25/16 [Rx] Omeprazole [PriLOSEC] 40 mg PO DAILY@0630 #30 11/25/16 [Rx] DiphenhydraMINE [Benadryl] 25 mg PO Q8H 12/16/16 [History] predniSONE [PredniSONE] 10 - 20 mg PO DAILY PRN 12/16/16 [History] Rivaroxaban [Xarelto] 15 mg PO DAILY #30 tablet 12/18/16 [Rx] Allergies/Adverse Reactions: 3 Allergy/AdvReac Type Severity Reaction Status Date / Time bee venom protein (honey bee) Allergy Difficulty Verified 12/16/16 10:34 Breathing naproxen Allergy Hives Verified 12/16/16 10:34 Penicillins Allergy Hives Verified 12/16/16 10:34 Procedures/tests Complete & Pending: Procedures Performed prior 72 hours Category Date Time Status CL Insert Permanent Pacemaker [CL] 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 12/17/16 10:41 Ordered Date of admission: 12/16/16 19:38 Primary care physician: Trenton Aguero MD Discharging clinician: Mahendra Dominguez - Patient Status Disposition: Home, Self-Care Condition: Good Functional capacity at discharge: independent ambulation Overall status at discharge: patient is progressing back to baseline - Discharge Instructions Instructions: Pacemaker (GEN), Bradycardia (DC) Follow Up With: Trenton Aguero MD [Primary Care Provider] - 12/24/16 3:00 pm (please follow up with your primary care provider) Ashok Avalos MD [Partnered Physician] - (Cardiology will call and schedule an appointment with you.) Additional Instructions: CONTINUE XARELTO IN 7 DAYS! Follow-up 7-10 days for wound check, 4-6 weeks device check and in [address] Ashok Avalos. ACTIVITY: Moderate activity for the next 7 days. No lifting more than 5 pounds ( gallon of milk) for 4-6 weeks. Avoid lifting your arm on the same side as the device for 4 weeks. BATHING /SHOWERING: Do not remove the large bandage over the site for 2 days. Do not allow the device to get wet for 7-10 days. You may bathe/shower, but do not use soap and water on the site. When bathing, keep the site dry by covering with Saran wrap or a towel. WOUND CARE: The white steri-strips will start to peel away and come off after 14 days, or your doctor will remove them after [address] anything into or on top of the incision. Do not use cotton swabs. Do not use any antibiotic ointment or Vitamin E on the site. REMINDERS: You may use electrical devices, such as, microwaves, hair dryers, electric razors, electric blankets, etc. as long as they are in good condition and kept 6 -8 inches away from the device. It is recommended to use cell phones on the opposite side of your device. Notify security personnel at the airport that you have a device before you go through airport security screening. When at places with security monitors, such as a grocery store, do not linger near these monitors. It is fine to walk past them in a normal manner. Refer to your owners manual for more specific directions. CARRY YOUR PACEMAKER/ICD CARD WITH YOU AT ALL TIMES Return to work as instructed per physician Resume driving as instructed per physician Keep all scheduled follow up appointments Resume medications as instructed Contact [facility] ( ) if: You develop excessive bleeding from insertion or wound site not controlled by applying pressure You develop a fever greater than 101 degrees Fahrenheit Your incision becomes reddened at or around the site Your incision develops yellowish or greenish drainage or development of white pimple-like bumps You experience excessive pain You develop swelling in your ankles You experience muscle switching You develop excessive hiccupping If you experience chest pain, shortness of breath, dizziness, or extreme tiredness, stop the activity and rest. Please notify [facility] office if you experience any of these symptoms and they are not relieved by rest please call 911! - Diet and Activity Activity: resume usual activities as tolerated Diet: advance to your usual diet Hospital course: Ms. Hammer is a 76 year old female with PMH of atrial fibrillation on xarelto , GERD, DM, HTN, HLD, and anxiety who presented to the hospital for evaluation of generalized weakness and headache. She stated that prior to arrival she checked her pressure and it has been in the 30s with YANG, weakness, shortness of breath. Patient arrived to hospital with symptomatic bradycardia with HR of 36 in which she received Atropine 0.5mg IV x 2 doses. Pt reported improvement in her symptoms after receiving the atropine, even though her HR remained in the 40s. She reports of taking Metoprolol once a day along with Cardizem daily. She was then admitted and cardiology was consulted and has been treating the patient out patient before this visit. She was placed on telemetry monitoring. She was found to have LORETTA and so losartan and aldactone were held. Electrophysiology was performed and it was determined by cardiology that the patient would need a pace maker. The patient was then scheduled for pacemaker placement the next day. He beta cori, calcium channel cori, and xarelto were all held until after procedure. The patient tolerated the procedure well. Upon completion of chest x-ray and the report of normal findings post- pacemake placement cardiology signed off on the patient. The patient denied chest pain, shortness of breathe, change in vision, headache, dysuria, dizziness. Her heart rate was 60 the day after procedure. She stated that she felt well. The patient' s renal function improved upon discharge. The patient was informed to hold Xarelto for 1 week. She was told to follow-up with cardiology out patient. Follow-up 7-10 days for wound check, 4-6 weeks device check and [address] Ashok Avalos. She stated a clear understanding of the treatment and plan and all questions were answered. She was told to return to the hospital if she were to start feeling unwell. - Time Spent with Patient Total time spent providing and/or coordinating discharge services: - Constitutional Vitals: Temp Pulse Resp BP Pulse Ox 97.9 F 59 18 144/75 97 12/18/16 03:41 12/18/16 07:26 12/18/16 07:26 12/18/16 07:26 12/18/16 07:26 General appearance: Present: cooperative, A&O X 3, pleasant, no acute distress, obese, answers questions appropriately Exam: Gen.: Vitals noted. No acute distress. AAOx3 HEENT: oropharynx clear, Normocephalic, atraumatic Neck: Supple. No adenopathy. Cardiac: RRR, no murmur, +S1/S2 Pulmonary: CTA bilaterally, no wheezes, rales or rhonchi, equal chest expansion Abdomen: soft, nontender, Bowel sounds noted, no guarding MSK: ROM intact, no joint swelling noted Extremities: no BLE edema, nontender calf, no cyanosis or clubbing Neuro: A&Ox3, moves all extremities Psych: Appropriate mood and behavior - VTE Documentation of Mechanical Device: Intermittent pneumatic compression device <Mahendra Dominguez - Last Filed: 12/18/16 17:45> Date of Encounter: 12/18/16 Procedures/tests Complete & Pending: Procedures Performed prior 72 hours Category Date Time Status CL Insert Permanent Pacemaker [CL] 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 Hammer is a 76 year old female - Time Spent with Patient Total time spent providing and/or coordinating discharge services: - Constitutional Vitals: Temp Pulse Resp BP Pulse Ox 97.7 F 60 18 168/69 96 12/18/16 11:05 12/18/16 11:05 12/18/16 11:05 12/18/16 11:05 12/18/16 11:05 - Attending Attestation patient is in no acute distress. Heart is regular with no murmurs rubs or gallops. Lungs are clear. Plan: Status post pacemaker placement yesterday for symptomatic bradycardia. Cleared by cardiology. We will discharge her home. Resume home medications.
--- NOTE | 2016-12-18 10:12 | Electrophysiology ProgressNote ---
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 CCB and BB resumed. Device check okay. CXR still needs completed this AM. Device site healing well with steri strips intact. No bleeding, hematoma or ecchymosis noted. Hold Xarelto 1 week s/p PPM. If CXR shows no acute findings, will sign off with outpt follow-up. Follow-up 7- 10 days for wound check, 4-6 weeks device check and [address] Ashok Avalos. (2) Tachy-michael syndrome Current Visit: Yes Status: Resolved Admitted with bradycardia, HR 30s. States was feeling dizzy, headaches, short of breath, and had some chest heaviness. Now s/p PPM yesterday. BB and CCB resumed. Symptoms have resolved. (3) Atrial fibrillation Current Visit: No Status: Chronic Known atrial fibrillation, recent admission with [facility]. Was on beta cori and cardizem as outpatient, developed bradycardia. Now s/p PPM for tach-michael syndrome. BB and CCB were stopped on admission, since resumed. Continue BB and CCB as outpt. On xarelto for anticoagulation. Instructed to hold Xarelto for 1 week s/p PPM insertion. Pt verbalizes understanding. Qualifiers: Atrial fibrillation type: paroxysmal Qualified Code(s): I48.0 - Paroxysmal atrial fibrillation Discussion w patient/family: The assessment and plan as outlined above was discussed with the patient and/or family members who expressed understanding and agreement. All questions were answered. Thank you for involving us in the care of your patient. Please call with any questions. Subjective Principal diagnosis: Tachy-michael Interval history: Pt reports feeling well overnight. Reports soreness at device site. CXR still needs completed. Device check okay. Objective Vital Signs, Last 4 Hours Pulse Resp BP Pulse Ox 12/18/16 07:26 59 18 144/75 97 Vital Signs Temp Pulse Resp BP Pulse Ox 12/18/16 07:26 59 18 144/75 97 12/18/16 03:41 97.9 F 60 19 140/55 95 12/17/16 23:40 60 12/17/16 23:16 97.8 F 60 17 146/98 93 12/17/16 19:15 60 12/17/16 19:09 97.7 F 60 18 135/75 94 12/17/16 16:24 97.6 F 59 16 153/91 96 12/17/16 11:30 97.5 F L 47 14 140/62 97 Intake and Output 12/17/16 12/18/16 12/18/16 23:59 07:59 15:59 Intake Total 120 / 120 Balance 120 / 120 Intake: Oral 120 / 120 Other: Meal Breakfast Percent of Meal Consumed 50% Stool Size Moderate Stool Consistency liquid Stool Color Brown # Bowel Movements 1 Weight 81.1 kg Blood Glucose* 110 89 General: Conversant, No Apparent Distress HEENT: Atraumatic, Normocephaly, Mucus Membranes Moist Neck: No JVD, Normal carotid pulses Cardiac: Other (irregularly irregular) Lungs: Normal Breath Sounds, No Wheeze, Rales, Rhonchi Neuro: Alert and responsive, No focal deficits noted Abdomen: Soft, Non-Tender Skin: Other (left chest device site healing well. No bleeding, hematoma or ecchymosis. Steri strips intact.) Musculoskeletal: No Chest Wall Tenderness Extremities: No Clubbing, No Cyanosis, No Edema, Normal Pulses Results 12/18/16 03:14 12/18/16 03:14 Lab Results 12/18/16 12/18/16 03:14 03:14 WBC 7.7 Hgb 12.3 Hct 39.5 Plt Count 226 Sodium 141 Potassium 4.4 Chloride 108 Carbon Dioxide 24 BUN 26 H Creatinine 1.02 Glucose 95 Calcium 8.7 Short CBC 12/18/16 Range/Units 03:14 WBC 7.7 (4.3-11.1) K/mcL Hgb 12.3 (11.5-15.4) g/dL Hct 39.5 (35.3-44.9) % Plt Count 226 (140-400) K/mcL Neutrophils # 4.7 (1.6-8.9) K/mcL BMP 12/18/16 Range/Units 03:14 Sodium 141 (136-145) mEq/L Potassium 4.4 (3.5-4.5) mEq/L Chloride 108 (98-109) mEq/L Carbon Dioxide 24 (19-29) mEq/L BUN 26 H (7-20) mg/dL Creatinine 1.02 (0.57-1.11) mg/dL Glucose 95 (70-99) mg/dL Calcium 8.7 (8.6-10.8) mg/dL Impressions Chest X-Ray 12/17/16 16:13 IMPRESSION: 1. Interval left-sided dual lead pacemaker placement with mild perihilar interstitial edema. 2. No acute pneumothorax. D/ / 12/17/2016 16:55:45 Hussain Terry MD / Christiana Adame Interpreting Provider: Hussain Terry MD Active Medications Acetaminophen (Tylenol) 650 mg PO Q4HR PRN PRN Reason: Mild Pain Stop: 06/18/17 16:14 Aspirin (Aspirin Ec) 81 mg PO DAILY [facility]O Stop: 06/17/17 09:01 Last Admin: 12/18/16 09:27 Dose: 81 mg Atorvastatin Calcium (Lipitor) 40 mg PO HS [facility]ULO Stop: 06/17/17 21:01 Last Admin: 12/17/16 21:18 Dose: 40 mg Citalopram Hydrobromide (Celexa) 10 mg PO DAILY [facility] Stop: 06/17/17 09:01 Last Admin: 12/18/16 09:27 Dose: 10 mg Dextrose/Water (Dextrose 50% (Syg)) 25 ml IVP AD PRN PRN Reason: Hypoglycemia Stop: 06/17/17 03:00 Diltiazem HCl (Cardizem Cd) 360 mg PO DAILY [facility]O Stop: 06/19/17 09:01 Last Admin: 12/18/16 09:27 Dose: 360 mg Ergocalciferol (Drisdol (50,000 Unit)) 50,000 unit PO QWEEK [facility] Stop: 06/17/17 09:01 Last Admin: 12/16/16 08:25 Dose: Not Given Glucagon (Glucagen) 1 mg IM ONCE PRN PRN Reason: Hypoglycemia Stop: 06/17/17 03:00 Glucose (Gluctose) 15 gm PO ONCE PRN PRN Reason: Hypoglycemia Stop: 06/17/17 03:00 Glucose (Gluctose) 30 gm PO ONCE PRN PRN Reason: Hypoglycemia Stop: 06/17/17 03:00 Hydralazine HCl (Hydralazine) 10 mg IVP Q6HR PRN PRN Reason: SBP>160 Stop: 06/17/17 03:16 Dextrose (Dextrose 5%) 1,000 mls @ 100 mls/hr IVC .Q10H PRN PRN Reason: HYPOGLYCEMIA Stop: 06/17/17 03:00 Insulin Human Lispro (Humalog) 0 units SQ TIDAC [facility] PRN Reason: Protocol Stop: 06/17/17 07:31 Last Admin: 12/18/16 08:21 Dose: Not Given Insulin Human Lispro (Humalog) 0 units SQ HS [facility] PRN Reason: Protocol Stop: 06/17/17 03:01 Last Admin: 12/17/16 21:00 Dose: Not Given Latanoprost (Xalatan) 1 drop BOTH EYES HS [facility] PRN Reason: Protocol Stop: 06/18/17 09:46 Last Admin: 12/17/16 21:19 Dose: 1 drop Losartan Potassium (Cozaar) 50 mg PO DAILY [facility] PRN Reason: Protocol Stop: 06/18/17 09:01 Last Admin: 12/17/16 08:16 Dose: 50 mg Metoprolol Succinate (Toprol Xl) 50 mg PO BID [facility] Stop: 06/18/17 21:01 Last Admin: 12/18/16 09:27 Dose: 50 mg Morphine Sulfate (Morphine Sulfate) 2 mg IVP Q4HR PRN PRN Reason: Severe Pain Stop: 06/18/17 16:14 Naloxone HCl (Narcan) 0.4 mg IVP Q2MIN PRN PRN Reason: Opioid Reversal Stop: 06/17/17 02:56 Omeprazole (Prilosec) 40 mg PO DAILY@0630 [facility] PRN Reason: Protocol Stop: 06/17/17 06:31 Last Admin: 12/18/16 06:29 Dose: 40 mg Ondansetron HCl (Zofran) 4 mg IVP Q8HR PRN PRN Reason: Nausea And Vomiting Stop: 06/17/17 02:56 Spironolactone (Aldactone) 25 mg PO DAILY [facility] Stop: 06/17/17 09:01 Last Admin: 12/17/16 08:15 Dose: 25 mg - VTE Documentation of Mechanical Device: Intermittent pneumatic compression device Consult Discharge Plan - Plan Additional Instructions: ACTIVITY: Moderate activity for the next 7 days. No lifting more than 5 pounds ( gallon of milk) for 4-6 weeks. Avoid lifting your arm on the same side as the device for 4 weeks. BATHING /SHOWERING: Do not remove the large bandage over the site for 2 days. Do not allow the device to get wet for 7-10 days. You may bathe/shower, but do not use soap and water on the site. When bathing, keep the site dry by covering with Saran wrap or a towel. WOUND CARE: The white steri-strips will start to peel away and come off after 14 days, or your doctor will remove them after [address] anything into or on top of the incision. Do not use cotton swabs. Do not use any antibiotic ointment or Vitamin E on the site. REMINDERS: You may use electrical devices, such as, microwaves, hair dryers, electric razors, electric blankets, etc. as long as they are in good condition and kept 6 -8 inches away from the device. It is recommended to use cell phones on the opposite side of your device. Notify security personnel at the airport that you have a device before you go through airport security screening. When at places with security monitors, such as a grocery store, do not linger near these monitors. It is fine to walk past them in a normal manner. Refer to your owners manual for more specific directions. CARRY YOUR PACEMAKER/ICD CARD WITH YOU AT ALL TIMES Return to work as instructed per physician Resume driving as instructed per physician Keep all scheduled follow up appointments Resume medications as instructed Contact [facility] ( ) if: You develop excessive bleeding from insertion or wound site not controlled by applying pressure You develop a fever greater than 101 degrees Fahrenheit Your incision becomes reddened at or around the site Your incision develops yellowish or greenish drainage or development of white pimple-like bumps You experience excessive pain You develop swelling in your ankles You experience muscle switching You develop excessive hiccupping If you experience chest pain, shortness of breath, dizziness, or extreme tiredness, stop the activity and rest. Please notify [facility] office if you experience any of these symptoms and they are not relieved by rest please call 911! Referrals: Trenton Aguero MD [Primary Care Provider] - 12/24/16 3:00 pm (please follow up with your primary care provider)
[2016-12-18 11:10] VITALS: BP 168/69
[2016-12-18] MEDS ORDERED: FLUARIX QUAD 2017-18 36MOS UP/PF 0.5 ML SYRINGE IM ONE (12:50)
== END 2016-12-18 14:30 | disposition home or self-care (01) | DRG 243 ==
LOC: EMEROO 23:05 → 2NNU 23:05
PROVIDERS: ADMIT Internal Medicine; ATTEND Internal Medicine